=== PATIENT | male | born 1990 ===

== ENCOUNTER 2017-08-01 04:48 | Emergency (ER) | payer SELFPAY ==
[2017-08-01 05:38] LABS: Hematocrit 46 % (42-52); Hemoglobin 15.4 g/dl (14.0-18.0); Mean Corpuscular HGB Conc 34 g/dl (31-36); Mean Corpuscular Hemoglobin 31 pg (27-31); Mean Corpuscular Volume 91 fL (80-94); Mean Platelet Volume 7 um3 (7.4-10.4); Red Blood Count 5.03 10^6/ul (4.0-5.4); Red Cell Distribution Width 14 % (10.5-15); White Blood Count 6.3 10^3/ul (3.5-10.8)
[2017-08-01 05:49] LABS: Albumin 4.6 g/dL (3.2-5.2); BUN/Creatinine Ratio 17.9 (8-20); Calcium 8.9 mg/dL (8.6-10.3); EGFR African American 138.9 (>60); Globulin 3.2 g/dL (2-4); Magnesium 2.3 mg/dL (1.9-2.7); Potassium 3.4 mmol/L (3.5-5.0); Total Bilirubin 1.2 mg/dL (0.2-1.0); Total Protein 7.8 g/dL (6.4-8.9)
--- NOTE | 2017-08-01 11:35 | ED ---
Israel Christian Angela, scribed for Maurisio oHwell MD on 08/01/17 at 1132 . Progress - Progress Note Progress Note: Pt is a 27 y/o M BIBA who presents to ED with EtOH intoxication. He denies N/V/ , SOB, abdominal pain, SI, HI. Serum alcohol of 298. This patient was signed out from Dr. Hebert, pending disposition, awaiting EtOH metabolism. \ The patient is now improved, and stable and ambulatory. Will DC home in good condition by cab. 1130 am. Course/Dx - Course Course Of Treatment: 27 yr old male who is ambulatory and stable for DC after metabolism of ETOH in the ER. - Diagnoses Provider Diagnoses: ETOH abuse The documentation as recorded by the Israel ogden Angela accurately reflects the service I personally performed and the decisions made by , Maurisio Howell MD.
[2017-08-01 11:40] VITALS: BP 118/64
--- NOTE | 2017-08-01 12:33 | ED ---
Nikki Christian Rebecca, scribed for Mindi Hebert MD on 08/01/17 at 0700 . Substance Abuse/Use <Maurisio Howell - Last Filed: 08/01/17 11:31> - HPI Summary HPI Summary: Pt is a 27 y/o M BIBA who presents to ED with EtOH intoxication. Per EMS, he was found running around his apartment building in his underwear, knocking on doors trying to find his apartment. When asked if he can explain what happened last night he says "not so much" though he is aware of what happened. Cannot recall what he was drinking. Confirms drinking alcohol tonight. Denies N/V/, SOB , abdominal pain, SI/HI. - History Of Current Complaint Hx Obtained From: Patient, EMS Ingestion History: Type/Name Of Drug - EtOH Overdose Characteristics: Oral Character: Stuporous Aggravating Factor(s): Nothing Alleviating Factor(s): Nothing Associated Signs And Symptoms: Negative <Mindi Hebert - Last Filed: 08/01/17 12:33> - History Of Current Complaint Chief Complaint: EDSubstanceAbuse Stated Complaint: ETOH Time Seen by Provider: 08/01/17 04:50 - Allergies/Home Medications Allergies/Adverse Reactions: Allergies Allergy/AdvReac Type Severity Reaction Status Date / Time No Known Allergies Allergy Verified 08/01/17 04:56 PMH/Surg Hx/FS Hx/Imm Hx Previously Healthy: Yes Endocrine/Hematology History: Denies: Hx Diabetes Cardiovascular History: Denies: Hx Coronary Artery Disease Infectious Disease History: No Infectious Disease History: Denies: Traveled Outside the [place] in Last 30 Days - Family History Known Family History: Positive: Other - EtOH abuse - Social History Occupation: Student Alcohol Use: Weekly Substance Use Type: Reports: Marijuana Smoking Status (MU): Never Smoked Tobacco <Mindi Hebert - Last Filed: 08/01/17 12:33> Review of Systems Negative: Shortness Of Breath Negative: Abdominal Pain, Vomiting, Nausea Positive: Other - EtOH intoxication; NEGATIVE SI, HIs All Other Systems Reviewed And Are Negative: Yes <Mindi Hebert - Last Filed: 08/01/17 12:33> Physical Exam Vital Signs On Initial Exam: Initial Vitals Temp Pulse Resp BP Pulse Ox 97.9 F 109 16 137/96 97 08/01/17 04:52 08/01/17 04:52 08/01/17 04:52 08/01/17 04:52 08/01/17 04:52 <Maurisio Howell - Last Filed: 08/01/17 11:31> Triage Information Reviewed: Yes Vital Signs On Initial Exam: Initial Vitals Temp Pulse Resp BP Pulse Ox 97.9 F 109 16 137/96 97 08/01/17 04:52 08/01/17 04:52 08/01/17 04:52 08/01/17 04:52 08/01/17 04:52 Vital Signs Reviewed: Yes Appearance: Positive: No Pain Distress, Well-Nourished, Ill-Appearing Skin: Positive: Warm, Skin Color Reflects Adequate Perfusion Head/Face: Positive: Normal Head/Face Inspection Eyes: Positive: Other: - Prefers eyes closed ENT: Positive: Normal ENT inspection Respiratory/Lung Sounds: Positive: Clear to Auscultation, Breath Sounds Present Cardiovascular: Positive: RRR, Pulses are Symmetrical in both Upper and Lower Extremities, Other - Brisk capillary refill. Negative: Murmur Abdomen Description: Positive: Nontender, Soft Bowel Sounds: Positive: Present Musculoskeletal: Positive: Normal, Strength/ROM Intact Neurological: Positive: Sensory/Motor Intact Psychiatric: Positive: Other - Odor similar to alcohol - [place] Coma Scale Coma Scale Total: 15 <Mindi Hebert - Last Filed: 08/01/17 12:33> Diagnostics - Vital Signs Vital Signs Temp Pulse Resp BP Pulse Ox 08/01/17 11:00 81 98 08/01/17 10:00 81 97 08/01/17 09:00 103 99 08/01/17 08:44 122/52 08/01/17 08:35 98 97 08/01/17 08:00 103 123/57 96 08/01/17 07:30 101 118/52 100 08/01/17 07:00 105 118/60 100 08/01/17 06:30 93 110/50 100 08/01/17 06:00 100 122/62 100 08/01/17 05:37 38 129/69 93 08/01/17 05:00 101 135/85 96 08/01/17 04:58 101 97 08/01/17 04:57 136/81 08/01/17 04:52 97.9 F 109 16 137/96 97 - Laboratory Lab Results: Lab Results 08/01/17 08/01/17 Range/Units 05:03 05:03 WBC 6.3 (3.5-10.8) 10^3/ul RBC 5.03 (4.0-5.4) 10^6/ul Hgb 15.4 (14.0-18.0) g/dl Hct 46 (42-52) % MCV 91 (80-94) fL MCH 31 (27-31) pg MCHC 34 (31-36) g/dl RDW 14 (10.5-15) % Plt Count 310 (150-450) 10^3/ul MPV 7 L (7.4-10.4) um3 Neut % (Auto) 53.3 (38-83) % Lymph % (Auto) 38.9 (25-47) % [place] % (Auto) 6.2 (1-9) % Eos % (Auto) 1.2 (0-6) % Baso % (Auto) 0.4 (0-2) % Absolute Neuts (auto) 3.4 (1.5-7.7) 10^3/ul Absolute Lymphs (auto) 2.4 (1.0-4.8) 10^3/ul Absolute Monos (auto) 0.4 (0-0.8) 10^3/ul Absolute Eos (auto) 0.1 (0-0.6) 10^3/ul Absolute Basos (auto) 0 (0-0.2) 10^3/ul Absolute Nucleated RBC 0.01 10^3/ul Nucleated RBC % 0.1 Sodium 138 (133-145) mmol/L Potassium 3.4 L (3.5-5.0) mmol/L Chloride 103 (101-111) mmol/L Carbon Dioxide 25 (22-32) mmol/L Anion Gap 10 (2-11) mmol/L BUN 15 (6-24) mg/dL Creatinine 0.84 (0.67-1.17) mg/dL Est GFR ( Amer) 138.9 (>60) Est GFR (Non-Af Amer) 108.0 (>60) BUN/Creatinine Ratio 17.9 (8-20) Glucose 110 H (70-100) mg/dL Calcium 8.9 (8.6-10.3) mg/dL Magnesium 2.3 (1.9-2.7) mg/dL Total Bilirubin 1.20 H (0.2-1.0) mg/dL AST 25 (13-39) U/L ALT 22 (7-52) U/L Alkaline Phosphatase 41 (34-104) U/L Total Protein 7.8 (6.4-8.9) g/dL Albumin 4.6 (3.2-5.2) g/dL Globulin 3.2 (2-4) g/dL Albumin/Globulin Ratio 1.4 (1-3) Serum Alcohol 298 H (<10) mg/dL Result Diagrams: 08/01/17 05:03 08/01/17 05:03 Lab Statement: Any lab studies that have been ordered have been reviewed, and results considered in the medical decision making process. <Maurisio Howell - Last Filed: 08/01/17 11:31> - Vital Signs Vital Signs Temp Pulse Resp BP Pulse Ox 08/01/17 06:00 100 122/62 100 08/01/17 05:37 38 129/69 93 08/01/17 05:00 101 135/85 96 08/01/17 04:58 101 97 08/01/17 04:57 136/81 08/01/17 04:52 97.9 F 109 16 137/96 97 - Laboratory Lab Results: Lab Results 08/01/17 08/01/17 Range/Units 05:03 05:03 WBC 6.3 (3.5-10.8) 10^3/ul RBC 5.03 (4.0-5.4) 10^6/ul Hgb 15.4 (14.0-18.0) g/dl Hct 46 (42-52) % MCV 91 (80-94) fL MCH 31 (27-31) pg MCHC 34 (31-36) g/dl RDW 14 (10.5-15) % Plt Count 310 (150-450) 10^3/ul MPV 7 L (7.4-10.4) um3 Neut % (Auto) 53.3 (38-83) % Lymph % (Auto) 38.9 (25-47) % [place] % (Auto) 6.2 (1-9) % Eos % (Auto) 1.2 (0-6) % Baso % (Auto) 0.4 (0-2) % Absolute Neuts (auto) 3.4 (1.5-7.7) 10^3/ul Absolute Lymphs (auto) 2.4 (1.0-4.8) 10^3/ul Absolute Monos (auto) 0.4 (0-0.8) 10^3/ul Absolute Eos (auto) 0.1 (0-0.6) 10^3/ul Absolute Basos (auto) 0 (0-0.2) 10^3/ul Absolute Nucleated RBC 0.01 10^3/ul Nucleated RBC % 0.1 Sodium 138 (133-145) mmol/L Potassium 3.4 L (3.5-5.0) mmol/L Chloride 103 (101-111) mmol/L Carbon Dioxide 25 (22-32) mmol/L Anion Gap 10 (2-11) mmol/L BUN 15 (6-24) mg/dL Creatinine 0.84 (0.67-1.17) mg/dL Est GFR ( Amer) 138.9 (>60) Est GFR (Non-Af Amer) 108.0 (>60) BUN/Creatinine Ratio 17.9 (8-20) Glucose 110 H (70-100) mg/dL Calcium 8.9 (8.6-10.3) mg/dL Magnesium 2.3 (1.9-2.7) mg/dL Total Bilirubin 1.20 H (0.2-1.0) mg/dL AST 25 (13-39) U/L ALT 22 (7-52) U/L Alkaline Phosphatase 41 (34-104) U/L Total Protein 7.8 (6.4-8.9) g/dL Albumin 4.6 (3.2-5.2) g/dL Globulin 3.2 (2-4) g/dL Albumin/Globulin Ratio 1.4 (1-3) Serum Alcohol 298 H (<10) mg/dL Result Diagrams: 08/01/17 05:03 08/01/17 05:03 Lab Statement: Any lab studies that have been ordered have been reviewed, and results considered in the medical decision making process. <Mindi Hebert - Last Filed: 08/01/17 12:33> Re-Evaluation - Re-Evaluation First Eval Re-Evaluation Time: 11:32 Change: Improved Comment: He is now ambulatory, and feels good. He wants to go home by cab at this point. He is stable for discharge. <Maurisio Howell - Last Filed: 08/01/17 11:31> Course/Dx <Maurisio Howell - Last Filed: 08/01/17 11:31> - Course Assessment/Plan: Pt is a 27 y/o M BIBA who presents to ED with EtOH intoxication. Per EMS, he was found running around his apartment building in his underwear, knocking on doors trying to find his apartment. When asked if he can explain what happened last night he says "not so much" though he is aware of what happened. Cannot recall what he was drinking. Confirms drinking alcohol tonight. Denies N/V/, SOB, abdominal pain, SI/HI. Serum alcohol of 298. Pt will be signed out, pending dispositoin, awaiting EtOH metabolism. <Mindi Hebert - Last Filed: 08/01/17 12:33> - Diagnoses Provider Diagnoses: ETOH abuse Discharge <Maurisio Howell - Last Filed: 08/01/17 11:31> - Discharge Plan Discharge Disposition Comment: Pt will be signed out, pending disposition, awaiting EtOH metabolism <Mindi Hebert - Last Filed: 08/01/17 12:33> - Discharge Plan Condition: Stable Disposition: HOME Patient Education Materials: Abuse of Alcohol (ED) Referrals: No Primary Care Phys,NOPCP [Primary Care Provider] - [facility] [Outside] The documentation as recorded by the Nikki ogden Rebecca accurately reflects the service I personally performed and the decisions made by me, Mindi Hebert MD.
== END 2017-08-01 11:41 | disposition home or self-care (01) ==
LOC: ED 04:48
DX: F10.129 Alcohol abuse with intoxication, unspecified (principal); Y90.8 Blood alcohol level of 240 mg/100 ml or more
CPT/HCPCS: 36415; 80053; 80320; 83735; 85025; 99282; G0480